=== PATIENT | female | born 1950 | race Caucasian/White ===

== ENCOUNTER 2017-02-22 08:16 | Inpatient (IN) | payer OTHER, BC ==
[2017-01-27 13:50] VITALS: BMI 29.0
--- NOTE | 2017-01-27 14:07 | PAT Medication Instructions ---
Service Date Jan 27, 2017. Current Home Medication List Aspirin (Aspirin Ec), 81 MG PO QAM Escitalopram (Lexapro), 10 MG PO QPM Ezetimibe (Zetia), 10 MG PO QAM Losartan Potassium (Cozaar), 100 MG PO QPM Meloxicam (Mobic), 15 MG PO HOLD ONE WEEK PRIOR Rosuvastatin Calcium (Crestor), 5 MG PO QAM Medication Instructions For Your Scheduled Surgery - Hold the following medications 7-10 days prior to surgery per surgeon's instructions: Meloxicam (Mobic), 15 MG PO - Take the following medications the morning of surgery with a sip of water OTHERWISE NOTHING TO EAT OR DRINK AFTER MIDNIGHT: Aspirin (Aspirin Ec), 81 MG PO QAM Rosuvastatin Calcium (Crestor), 5 MG PO QAM Ezetimibe (Zetia), 10 MG PO QAM - Take the following medications as scheduled the night before surgery: Escitalopram (Lexapro), 10 MG PO QPM - Do not take the following medications the night before surgery: Losartan Potassium (Cozaar), 100 MG PO QPM If you have any questions please call us at [phone] or [phone] or [phone]
[2017-01-27 14:37] LABS: BASO % 0.7 %; BASO ABS # 0.03 K/uL (0-0.2); COMPLETE YES; EOS % 3.9 %; HEMATOCRIT 38.7 % (37-47); LYMPH % 25.3 %; MEAN CORPUSCULAR HEMOGLOBIN 29.7 pg (25-34); MEAN CORPUSCULAR HGB CONC 33.3 g/dl (32-36); MEAN PLATELET VOLUME 9.1 fL (7.4-10.4); MONO % 9.7 %; NEUT % 60.4 %; PLATELET COUNT 275 K/uL (130-400); RED BLOOD COUNT 4.35 M/uL (4.2-5.4); WHITE BLOOD COUNT 4.34 K/uL (4.8-10.8)
[2017-01-27 14:46] LABS: URINE APPEARANCE CLEAR (CLEAR); URINE BILIRUBIN NEG (NEG); URINE COLOR YELLOW; URINE NITRITE NEG (NEG); URINE PH 5.5 (4.5-7.5); URINE SPECIFIC GRAVITY 1.016 (1.000-1.030); UROBILINOGEN NEG (NEG)
[2017-01-27 14:48] LABS: INR 0.9 (0.9-1.1)
[2017-01-27 14:54] LABS: MANUAL MICROSCOPIC REQUIRED? NO; REVIEW REQ? NO
--- NOTE | 2017-01-27 14:56 | DIAGNOSTIC IMAGING REPORT ---
CHEST PREADMISSION(PA/LAT) CLINICAL HISTORY: Preoperative evaluation. COMPARISON STUDY: No previous studies for comparison. FINDINGS: Lung volumes are normal. No pneumothorax or pleural effusion is present. There is no evidence of pulmonary edema. Cardiac size is normal. There is a moderate sized hiatal hernia. Note is made of scoliosis of the thoracolumbar spine. IMPRESSION: 1. No acute cardiopulmonary findings. 2. Moderate sized hiatal hernia. Electronically signed by: Rod Levi M.D. 01/27/2017 2:55 PM Dictated Date/Time: 01/27/2017 2:54 PM
[2017-01-27 15:04] LABS: BUN/CREATININE RATIO 20.6 (10-20); CALCIUM 9.4 mg/dl (8.5-10.1); POTASSIUM 3.9 mmol/L (3.5-5.1)
--- NOTE | 2017-01-28 01:07 | HISTORY & PHYSICAL EXAMINATION ---
DATE OF ADMISSION: 02/22/2017 CHIEF COMPLAINT: Right knee pain. HISTORY OF PRESENT ILLNESS: Ms. Howard is a 66-year-old female with multiple-year history of right knee pain. The patient rates her pain a 7/10. She has pain with her daily activities. She has limited standing and walking tolerance. Pain is worse with weightbearing. The patient has had injections, anti-inflammatories, Tylenol and a walking program over the years without relief. She has failed conservative treatment and is now ready to proceed with right total knee replacement. PAST MEDICAL HISTORY: Hypertension, hypercholesterolemia, anxiety and acid reflux. She denies heart disease, diabetes or DVT. PAST SURGICAL HISTORY: Cyst excision on lower lip 04/2016. SOCIAL HISTORY: The patient denies alcohol or tobacco use. She lives in a single story home. She is and retired. FAMILY HISTORY: Positive for AFib with CVA in her mother. MEDICATIONS: Mobic 15 mg daily, Zetia 10 mg daily, Crestor 5 mg daily, aspirin 81 mg daily. ALLERGIES: None. REVIEW OF SYSTEMS: See HPI. Ten other systems reviewed, all negative. PHYSICAL EXAMINATION: VITAL SIGNS: Height 4 feet 11. Weight 153 pounds. BMI 29. GENERAL: This is a well-developed, well-nourished female who is alert and oriented x3. Mood and affect are appropriate. HEENT: Normocephalic, atraumatic. Mucous membranes are moist and intact. NECK: Supple without lymphadenopathy. HEART: Regular rate and rhythm without murmurs, rubs or gallops. LUNGS: Clear to auscultation without wheezes or rhonchi. ABDOMEN: Soft and nontender. Bowel sounds are equal and active. EXTREMITIES: No ecchymosis, redness or warmth. She has a varus deformity. Range of motion is from 3-115 degrees with +2 laxity. She does have some distal edema that is nonpitting. She is neurovascularly intact with +5/5 strength. X-RAY EXAMINATION: AP and lateral views show joint space narrowing and osteophyte formation. IMPRESSION: Degenerative joint disease, right knee. PLAN: The patient will be admitted for a right total knee arthroplasty. We will plan on aspirin for DVT prophylaxis. The patient was instructed to stop her Mobic 7-10 days prior to surgery. She is going to have a preop referral, sent to [facility] for home physical therapy. Her PCP is Dr. Johnston in [place]. Switchboard Wire Worker Helper is Dr. Mccauley in [facility].
[2017-02-22] VITALS (8 sets, daily range): BP systolic 116–172; BP diastolic 65–94; PULSE 65–76; TEMP 36.3–36.7; O2SAT 95–100; Ht 152.4 cm; Wt 68.9 kg
[~2017-02-22] VITALS: Ht 152.4 cm; Wt 68.9 kg
--- NOTE | 2017-02-22 07:10 | History & Physical Bridge Note ---
H&P Re-Evaluation Bridge Note: I have examined the patient, reviewed the History & Physical and in the interval since the performance of the History & Physical I have noted the following changes of clinical significance: No changes noted
[~2017-02-22 08:16] MED LIST: ACETAMINOPHEN 500 MG TAB PO SCH; ASPI81TA28 PO; BUPIVACAINE 0.5 % 5 MG/1 ML PF 10ML VIAL ONE; BUPIVACAINE LIPOSOME 266 MG, BUPIVACAINE/EPINEPHRINE INJ 50 ML, SODIUM CHLORIDE 0.9% PF... INFIL SCH; CEFAZOLIN 1000MG IV PUSH 5 ML IV SCH; CeleBREX 200 MG CAP PO SCH; DEXAMETHASONE 4 MG TAB PO SCH; ESCI10TA17 PO; EZET10TA63 PO; FAMOTIDINE 20 MG TAB PO SCH; GABAPENTIN 300 MG CAP PO SCH; LACTATED RINGER'S 1000ML 1,000 ML IV SCH; LACTATED RINGER'S 1000ML 500 ML IV ONE; LACTATED RINGER'S 1000ML IV SCH; LOSA1TAB38 PO; MELO15TA4 PO; METOCLOPRAMIDE HCL 10 MG TAB PO SCH; ROPIVACAINE 5MG/ML 30 ML 150 MG, BUPIVACAINE 0.5% MPF INJ 30 ML, EpINEphrine HCL INJ 0.... INFIL SCH; ROSU5TAB PO; TRANEXAMIC ACID INJ 1,000 MG in SODIUM CHLORIDE 0.9% 100ML 100 ML IV SCH
[2017-02-22] MEDS ORDERED: MIDAZOLAM HCL 1 MG/ML 2ML VIAL ONE (09:30)
[2017-02-22] MEDS ORDERED: FENTANYL CITRATE INJ 50 MCG/1 ML 2 ML VIAL ONE (09:30)
[2017-02-22] MEDS ORDERED: LIDOCAINE HCL 2% 2 ML VIAL (20MG/ML) ONE (09:30)
[2017-02-22] MEDS ORDERED: ONDANSETRON INJ 2 MG/ML 2 ML VIAL ONE (09:30)
[2017-02-22] MEDS ORDERED: PROPOFOL IV EMULSION 10 MG/ML 20 ML VIAL IV ONE (09:30)
[2017-02-22] MEDS ORDERED: SCOPOLAMINE 1.5 MG TDSY TD ONE (10:20)
[2017-02-22] MEDS ORDERED: EpHEDrine SULFATE INJ 50 MG/ML AMP IV PRN (10:30)
[2017-02-22] MEDS ORDERED: ATROPINE SULFATE 0.1 MG/ML 5ML SYR IV PRN (10:30)
[2017-02-22] MEDS ORDERED: FENTANYL CITRATE INJ 50 MCG/1 ML 2 ML VIAL IV PRN (10:30)
[2017-02-22] MEDS ORDERED: ONDANSETRON INJ 2 MG/ML 2 ML VIAL IV PRN (10:30)
[2017-02-22] MEDS ORDERED: ORTHO JOINT ANESTHETIC ONE (10:54)
[2017-02-22] MEDS ORDERED: BACITRACIN 50000 UNIT VIAL ONE (10:54)
[2017-02-22] MEDS ORDERED: POVIDONE-IODINE OP SOLN 30 ML BTL ONE (10:54)
[2017-02-22] MEDS: TRANEXAMIC ACID INJ 1,000 MG in SYRINGE 0 ML IV SCH ×2 (11:05→15:16)
--- NOTE | 2017-02-22 12:25 | [facility] Operative Report ---
Operative Report Operative Date Feb 22, 2017. Pre-Operative Diagnosis Degenerative Joint Disease, right knee Post-Operative Diagnosis Degenerative Joint Disease, right knee Procedure(s) Performed Right Total Knee Arthroplasty utilizing [employer]hew journey 2 patient matched total knee arthroplasty size 4 femur 3 tibia 13 poly-[address] Patiño Diesel Truck Mechanic Surgeon(s) Sumit Watt PA-C Estimated Blood Loss 5 ml Findings Severe end-stage tricompartmental degenerative joint disease right knee with varus alignment bone the bone changes medial osteophytes subchondral sclerosis Lorcet Plus to conservative management presents for total knee arthroplasty Specimens A) Right knee- bone & tissue Complication(s) None Disposition Recovery Room / PACU Indications Patient presents after failing attempts at conservative management with severe end-stage tricompartmental degenerative joint disease of the right knee status post previous injections anti-inflammatories relative rest activity modification patient presents for total knee arthroplasty Description of Procedure After proper prepping and draping of the Right lower extremity anterior midline incision was made over the region of the extensor extensor mechanism after meticulous hemostasis was obtained and maintained in subcutaneous tissues a medial parapatellar incision was made The patella was subluxed lateralward the medial lateral gutter were cleaned from any hypertrophic synovitis and scar tissue of the distal femoral block was placed and the distal femoral osteotomy cut was made subsequently the chamfers anterior and posterior osteotomy cuts were made utilizing the 4-in-1 block the tibia was subsequently subluxed anteriorward medial and ateral meniscal remnants were excised in their entirety remnants of the anterior and posterior cruciate ligaments were excised in their entirety excellent exposure of the proximal tibia was obtained the tibial osteotomy guide was placed on the proximal tibial osteotomy cut was made once again the knee was irrigated with copious amounts of sterile saline solution the patella was subsequently everted lateralward thickened scar tissue around the patella was removed the patella was subsequently cut utilizing a freehand technique and was drilled prepared for final preparation and placement of patella socially flexion-extension gaps were checked and the equal and symmetric trials were placed to the appropriate femoral and tibial trials with poly-spacer being placed for equal flexion and extension gaps and full range of motion including extension to 0 and flexion to 140 the trial components after having been taken to recovery range of motion was subsequently removed meticulous hemostasis was obtained and maintained subsequently a knee block injection of joint cocktail including ropivacaine 0.5% 150 mg. Bupivacaine 0.5 % epinephrine 1-200,030 mL's toradol 30 mg dexamethasone 4 mg ketamine 10 mg clonidine 100 micrograms normal saline solution 30 mg was infiltrated into the soft tissues of the posterior knee medial lateral gutters and periosteal synovium special attention was paid to protect neurovascular structures at all times subsequently trial components having been removed the knee was irrigated with sterile saline solution. debris was removed the proximal tibia was subsequently prepared and was made ready for the placement of the tibial component tibial component was also cemented and tamped into position the femoral component was subsequently placed and cemented in the position the patellar component was subsequently cemented in position because hemostasis once again obtained and maintained wound having been thoroughly irrigated with debridement and debridement lavage was performed as well as a medial parapatellar incision closed with #1 Vicryl in interrupted fashion subcutaneous was closed with #2 Vicryl skin was closed with skin clips. PA-C was necessary for prepping and drapping as well as wound closure of deep fascia Sub cutaneous tissue and skin and was necessary for the case. A sterile compressive dressing was placed patient was taken to recovery in stable condition of report dictated by Haroon I attest to the content of the Intraoperative Record and any orders documented therein. Any exceptions are noted below. I attest to the content of the Intraoperative Record and any orders documented therein. Any exceptions are noted below.
[2017-02-22] MEDS ORDERED: TRAMADOL HCL 50 MG TAB PO PRN (13:15)
[2017-02-22] MEDS ORDERED: ALUMINUM/MAGNESIUM/SIMETH (MAALOX MAX) 30 ML UDC PO PRN (13:15)
[2017-02-22] MEDS ORDERED: OXYCODONE HCL IR 5 MG TAB (IMMEDIATE RELEASE) PO PRN (13:15)
[2017-02-22] MEDS ORDERED: MAGNESIUM HYDROXIDE SUSP 30 ML UDC PO PRN (13:15)
[2017-02-22] MEDS ORDERED: BISACODYL 10 MG SUPP PR PRN (13:15)
[2017-02-22] MEDS ORDERED: MoRPHine SULFATE 2 MG/ML CARP IV PRN (13:15)
[2017-02-22] MEDS ORDERED: MoRPHine SULFATE 4 MG/ML 1 ML CARP\\VIAL IV PRN (13:15)
--- NOTE | 2017-02-22 13:43 | DIAGNOSTIC IMAGING REPORT ---
R KNEE 1 OR 2 VIEWS ROUTINE CLINICAL HISTORY: Right knee degenerative joint disease. COMPARISON: None FINDINGS: Alignment of the total right knee arthroplasty is anatomic. There is no fracture or unexpected radiopaque foreign body. Drains are in place. IMPRESSION: Expected findings following total right knee arthroplasty. Electronically signed by: Rod Levi M.D. 02/22/2017 1:42 PM Dictated Date/Time: 02/22/2017 1:41 PM
[2017-02-22] MEDS: ONDANSETRON INJ 2 MG/ML 2 ML VIAL IV PRN (15:01)
--- NOTE | 2017-02-22 15:38 | Anesthesiology Progress Note ---
Anesthesia Post Op Note Date & Time Feb 22, 2017 at 15:38 Vital Signs Pain Intensity: 2.0 Vital Signs Past 12 Hours Date Time Temp Pulse Resp B/P (MAP) Pulse Ox O2 Delivery O2 Flow Rate FiO2 02/22/17 14:34 36.6 70 12 118/71 (87) 97 Nasal Cannula 2.0 02/22/17 14:34 97 Nasal Cannula 2.0 02/22/17 14:15 74 16 114/67 97 Nasal Cannula 2 02/22/17 14:00 71 16 108/67 97 Nasal Cannula 2 02/22/17 13:50 68 16 100/60 97 Nasal Cannula 2 02/22/17 13:40 36.6 69 16 111/68 97 Nasal Cannula 2 02/22/17 13:30 69 16 109/59 97 Nasal Cannula 2 02/22/17 13:20 77 16 107/71 97 Oxymask 10 02/22/17 13:10 74 10 112/57 97 Oxymask 10 02/22/17 13:00 36.5 76 10 107/63 97 Oxymask 10 02/22/17 08:50 36.4 71 18 172/94 99 Room Air Notes Mental Status: alert / awake / arousable, participated in evaluation Pt Amnestic to Procedure: Yes Nausea / Vomiting: adequately controlled Pain: adequately controlled Airway Patency, RR, SpO2: stable & adequate BP & HR: stable & adequate Hydration State: stable & adequate Neuraxial Anesthesia: was administered, sensory block is resolving Anesthetic Complications: no major complications apparent
[2017-02-22] MEDS: ACETAMINOPHEN 500 MG TAB PO SCH ×2 (15:51→23:23)
[2017-02-22] MEDS: D5W AND 1/2NSS + 20MEQ KCL 1,000 ML IV SCH ×2 (15:51→22:23)
[2017-02-22] MEDS: FERROUS GLUCONATE 324 MG TAB PO SCH (17:38)
[2017-02-22] MEDS: CEFAZOLIN IV 2,000 MG in SYRINGE 0 ML IV SCH (20:00)
[2017-02-22] MEDS: CeleBREX 200 MG CAP PO SCH (20:29)
[2017-02-22] MEDS: DOCUSATE SODIUM 100 MG CAP PO SCH (20:30)
[2017-02-22] MEDS: ASPIRIN 81 MG ECTAB PO SCH (20:30)
[2017-02-22] MEDS ORDERED: LOSARTAN POTASSIUM 50 MG TAB PO SCH (21:00)
[2017-02-22] MEDS ORDERED: ESCITALOPRAM OXALATE 10 MG TAB PO SCH (21:00)
[2017-02-22] MEDS ORDERED: SENNA 8.6 MG TAB PO SCH (21:00)
[2017-02-23] MEDS: CEFAZOLIN IV 2,000 MG in SYRINGE 0 ML IV SCH (03:14)
[2017-02-23 03:44] VITALS: BP 130/79; PULSE 56; TEMP 36.5; O2SAT 95
[2017-02-23 06:26] LABS: HEMATOCRIT 35.3 % (37-47); MEAN CELL VOLUME 90.7 fL (80-100); MEAN PLATELET VOLUME 8.9 fL (7.4-10.4); PLATELET COUNT 230 K/uL (130-400); RED BLOOD COUNT 3.89 M/uL (4.2-5.4); WHITE BLOOD COUNT 11.81 K/uL (4.8-10.8)
[2017-02-23 06:52] VITALS: BP 134/72; PULSE 54; TEMP 36.5; O2SAT 96
[2017-02-23 06:53] LABS: BUN/CREATININE RATIO 15.7 (10-20); CALCIUM 8.9 mg/dl (8.5-10.1); CREATININE 1.11 mg/dl (0.60-1.20); POTASSIUM 4.6 mmol/L (3.5-5.1)
[2017-02-23] MEDS ORDERED: SNK PO (08:10)
[2017-02-23] MEDS ORDERED: CLB200 PO (08:10)
[2017-02-23] MEDS ORDERED: RXC5 PO (08:10)
[2017-02-23] MEDS ORDERED: ASPI81TA28 PO ×2 (08:10→08:26)
[2017-02-23] MEDS ORDERED: ACET-24 PO (08:10)
--- NOTE | 2017-02-23 08:17 | Discharge Instructions ---
Discharge Instructions Date of Service Feb 23, 2017. Admission Reason for Admission: Right Knee Degenerative Joint Disease Discharge Discharge Diagnosis / Problem: Right Knee Djd Discharge Goals Goal(s): Decrease discomfort, Improve function Activity Recommendations Activity Limitations: per Instructions/Follow-up section Weightbearing Status: Right weightbearing (as tolerated) . Instructions / Follow-Up Instructions / Follow-Up ACTIVITY RECOMMENDATIONS: SELF CARE INSTRUCTIONS AFTER TOTAL KNEE REPLACEMENT A. You may need to continue a physical therapy program after discharge from the hospital. There are several options available to you. Your doctor will assist you in selecting the best one for you. 1. An out-patient facility 2 to 3 times a week for therapy or home therapy. 2. Continue working on all exercises taught to you in the hospital. Your goals should be to increase bending of your knee to 90 degrees and beyond and to fully straighten your knee. B. You may progress at your own pace from walking with a walker or crutches to a cane; then to no assistive devices. C. Make walking a part of your daily routine. Be up as much as comfortable with rest periods throughout the day. Rest with leg elevation is very important. Use the ice wrap frequently for the first 3-4 weeks. D. There are no restrictions on activities. You may ride in a car, shop, participate in rock worker and all social activities. E. Wear the long elastic stockings (KAYLIE hose) 20 hours a day for 2 weeks after surgery. They can be removed several times a day for laundering and for a bath. F. You may shower, no tub baths until cleared by your doctor. SPECIAL CARE INSTRUCTIONS: VERY IMPORTANT TO READ AND REVIEW A. There are a few signs you need to watch for after you are home. Call [facility] if you notice any of the followin. Increased severe knee pain. Some pain is expected especially when you exercise. 2. Increased swelling in your leg or knee; pain or swelling of the calf muscle in either lower leg. 3. Any fluid drainage from the incision. 4. Shortness of breath or chest pain. B. Please call [facility] at if you have any concerns or questions about your operation or recovery. The doctor or his nurse will return your call promptly. C. You must take antibiotics before dental work, bladder, bowel or other surgery. Your doctor will provide you with a permanent care to carry describing this precaution. IMPORTANT: * REMEMBER TO TAKE ASPIRIN, 81 MG, TWICE DAILY FOR 4 WEEKS UNLESS OTHERWISE DIRECTED. THIS IS YOUR BLOOD THINNER. * HIGH RISK PATIENTS MAY BE PRESCRIBED A STRONGER BLOOD THINNER. THIS WILL BE PROVIDED AT DISCHARGE. * CALL IF INCREASED PAIN, REDNESS, DRAINAGE OR FEVER GREATER THAT 101. * WEAR KAYLIE HOSE 20 HOURS PER DAY FOR 2 WEEKS. * YOU HAVE A ZIPLINE CLOSURE SYSTEM. YOU WILL NEED TO DO DAILY DRESSING CHANGES WITH YOUR WOUND. YOU MAY USE 4X4 GAUZE OR ABD'S TO COVER THE WOUND. THE ZIPLINE WILL REMAIN ON FOR 14 DAYS AND BE REMOVED IN THE OFFICE. KEEP YOUR WOUND COVERED SO NOT TO CATCH ON YOUR CLOTHES. YOU WILL BE GIVEN DIRECTIONS BY THE NURSING STAFF THAT GO OVER THE ZIP LINE CLOSURE SYSTEM. YOU MAY SHOWER IN 72 HOURS. NO DIRECT SHOWER PRESSURE ON THE WOUND. NO TUB BATHS. DO NOT SOAK THE WOUND. CALL OUR OFFICE WITH ANY QUESTIONS. . FOLLOW UP VISIT: If appointment is not already scheduled: Please call [facility] to make a follow-up appointment for 2 weeks after your surgery at . Current Hospital Diet Patient's current hospital diet: Regular Diet Discharge Diet Recommended Diet: Regular Diet Procedures Procedures Performed: Right Total Knee Arthroplasty utilizing George [employer] Nephew journey 2 patient matched total knee arthroplasty size 4 femur 3 tibia 13 poly-29 oval patella Pending Studies Studies pending at discharge: no Laboratory Results Hemoglobin A1c Test 01/27/17 14:15 Range/Units Estimated Average Glucose 120 mg/dl Hemoglobin A1c 5.8 H 4.5-5.6 % Medical Emergencies . Who to Call and When: Medical Emergencies: If at any time you feel your situation is an emergency, please call 911 immediately. . Non-Emergent Contact Non-Emergency issues call your: Surgeon Call Non-Emergent contact if: temperature is above 101.5, your pain is not controlled, your pain is worsening, wound has increased drainage, wound has increased redness . "Provider Documentation" section prepared by Sumit Watt. . VTE Core Measure Inpt VTE Proph given/why not?: Other Anticoagulation, T.E.D. Stockings, SCD's [place] Drug Monitoring Program Search Results: patient reviewed within database, no issues identified
--- NOTE | 2017-02-23 08:19 | Orthopedic Progress Note ---
Orthopedic Progress Note Date of Service Feb 23, 2017. Subjective Post OP Day: 1 Reports: feeling well, Denies: chest pain, SOB, nausea / vomiting, light headedness, calf pain Objective calves soft nontender, N/V intact, capillary refill less than 2 sec., dressing C /D/I, A&O x3, toes mobile, hemovac drainage (75CC LAST SHIFT) Date Time Temp Pulse Resp B/P (MAP) Pulse Ox O2 Delivery O2 Flow Rate FiO2 02/23/17 06:52 36.5 54 17 134/72 (92) 96 Room Air 02/23/17 03:44 36.5 56 14 130/79 (96) 95 Room Air 02/22/17 23:30 36.5 66 16 128/80 (96) 97 Room Air 02/22/17 23:26 Room Air 02/22/17 21:06 95 Room Air 02/22/17 19:24 36.6 65 18 118/73 (88) 97 Nasal Cannula 2.0 02/22/17 18:17 36.6 72 18 116/65 (82) 99 Nasal Cannula 2.0 02/22/17 16:36 36.3 76 18 117/69 (85) 100 Nasal Cannula 2.0 02/22/17 15:40 Nasal Cannula 2.0 02/22/17 15:38 36.7 71 16 126/76 (93) 98 Nasal Cannula 2.0 02/22/17 14:34 36.6 70 12 118/71 (87) 97 Nasal Cannula 2.0 02/22/17 14:34 97 Nasal Cannula 2.0 02/22/17 14:15 74 16 114/67 97 Nasal Cannula 2 02/22/17 14:00 71 16 108/67 97 Nasal Cannula 2 02/22/17 13:50 68 16 100/60 97 Nasal Cannula 2 02/22/17 13:40 36.6 69 16 111/68 97 Nasal Cannula 2 02/22/17 13:30 69 16 109/59 97 Nasal Cannula 2 02/22/17 13:20 77 16 107/71 97 Oxymask 10 02/22/17 13:10 74 10 112/57 97 Oxymask 10 02/22/17 13:00 36.5 76 10 107/63 97 Oxymask 10 02/22/17 08:50 36.4 71 18 172/94 99 Room Air Laboratory Results 24 Hours: Test 02/23/17 06:10 Hematocrit 35.3 % Hemoglobin 11.3 g/dL Assessment & Plan Assessment: POD#1 SP RIGHT TKA Inhouse Planning Pain Management: PO Tylenol, Oxy IR DVT Prophylaxis: ASA Discharge Planning Discharge Planning: home with home health (DC HOME TODAY WITH [facility]. OK TO DC DRESSING/DRAIN)
[2017-02-23] MEDS: CeleBREX 200 MG CAP PO SCH (08:38)
[2017-02-23] MEDS: FERROUS GLUCONATE 324 MG TAB PO SCH ×2 (08:38→12:26)
[2017-02-23] MEDS: DOCUSATE SODIUM 100 MG CAP PO SCH (08:38)
--- NOTE | 2017-02-23 08:38 | DISCHARGE SUMMARY ---
DISCHARGE DIAGNOSIS: Degenerative joint disease, right knee. SECONDARY DIAGNOSES: Hypertension, hypercholesterolemia, anxiety, gastroesophageal reflux disease. CONSULTS: None. COMPLICATIONS: None. PROCEDURES: Right total knee arthroplasty performed by Dr. Patiño on 02/22/2017. BRIEF HISTORY: As dictated in history and physical. HOSPITAL SUMMARY: The patient was admitted on the above date and had the above known surgery performed which he tolerated well. On the first postoperative day, she was feeling well and had no complaints. Calves were soft, nontender, neurovascularly intact. Dressings clean, dry and intact. Toes were mobile. Vital signs were stable and she was afebrile. Hemoglobin was 11.3. She was started on physical therapy protocol and was remaining stable and it was felt she could be discharged to home on 02/23/2017. For further review, please see chart, lab and x-ray data as per chart. DISCHARGE INSTRUCTIONS: The patient was discharged to home in satisfactory condition on 02/23/2017. DIET: Regular. ACTIVITY: Follow TK instruction sheets and special care instructions as noted and follow up with Dr. Patiño in 2 weeks. The patient to call for appointment if one has not been made for you. DISCHARGE MEDICATIONS: Acetaminophen 1000 mg p.o. q. 8 hours for 21 days, Celebrex 200 mg p.o. b.i.d., oxycodone 5-10 mg p.o. q. 4 hours p.r.n., senna 17.2 mg p.o. at bedtime, aspirin 81 mg p.o. b.i.d. for 30 days, after 30 days resume once daily dosing, resume home meds as listed and stop taking Meloxicam.
[2017-02-23] MEDS: ASPIRIN 81 MG ECTAB PO SCH (08:39)
[2017-02-23] MEDS: D5W AND 1/2NSS + 20MEQ KCL 1,000 ML IV SCH (08:40)
[2017-02-23] MEDS ORDERED: MULTIVITAMIN TAB PO SCH (09:00)
[2017-02-23] MEDS ORDERED: PANTOprazole SOD 40 MG TAB PO SCH (09:00)
[2017-02-23] MEDS ORDERED: EZETIMIBE 10MG TAB PO SCH (09:00)
[2017-02-23] MEDS ORDERED: ROSUVASTATIN CALCIUM 5 MG TAB PO SCH (09:00)
[2017-02-23] MEDS: ACETAMINOPHEN 500 MG TAB PO SCH (09:49)
[2017-02-23 10:02] VITALS: BP 134/72; PULSE 54; TEMP 36.5; O2SAT 96
[2017-02-23] MEDS: ONDANSETRON INJ 2 MG/ML 2 ML VIAL IV PRN (12:25)
== END 2017-02-23 13:39 | disposition home health service (06) | DRG 470 ==
LOC: C.ACU 08:16 → C.3E 10:20 → ENRESERV 13:48
PROVIDERS: ADMIT Orthopaedic Surgery; ATTEND Orthopaedic Surgery
PROC: 0SRC0J9 Replacement of Right Knee Joint with Synthetic Substitute, Cemented, Open Approach (ICD-10-PCS; principal; 2017-02-22 11:00)
DX: M17.11 Unilateral primary osteoarthritis, right knee (principal); I10 Essential (primary) hypertension; E78.00 Pure hypercholesterolemia, unspecified; F41.9 Anxiety disorder, unspecified; Z79.1 Long term (current) use of non-steroidal anti-inflammatories (NSAID); Z79.82 Long term (current) use of aspirin; Z79.899 Other long term (current) drug therapy; Z82.49 Family history of ischemic heart disease and other diseases of the circulatory system; Z82.3 Family history of stroke